=== PATIENT | female | born 1950 | race Caucasian/White ===

== ENCOUNTER 2024-07-07 10:10 | Emergency (ER) | payer MEDICARE, MEDICAID ==
[~2024-07-07] VITALS: Ht 170.2 cm; Wt 67.7 kg
[~2024-07-07 10:10] MED LIST: ASPI-1265 PO; FURO20TA4 PO; MIRT-87 PO; POTA-207 PO
[2024-07-07 10:42] VITALS: TEMP 97
[2024-07-07 11:10] VITALS: BP 112/80; PULSE 88; RESP 18; O2SAT 98
== END 2024-07-07 11:13 ==
LOC: ER 10:10
DX: F10.129 Alcohol abuse with intoxication, unspecified (principal); G89.29 Other chronic pain; Z90.49 Acquired absence of other specified parts of digestive tract; Z98.890 Other specified postprocedural states; Z72.89 Other problems related to lifestyle
CPT/HCPCS: 99283

== ENCOUNTER 2024-07-23 10:34 | Emergency (ER) | payer MEDICARE, MEDICAID ==
[~2024-07-23] VITALS: Ht 170.2 cm; Wt 67.7 kg
[2024-07-23 10:47] VITALS: BP 116/74; PULSE 91; RESP 18; TEMP 97.6; O2SAT 95
== END 2024-07-23 12:18 | disposition home or self-care (01) ==
LOC: ER 10:35
DX: F10.129 Alcohol abuse with intoxication, unspecified (principal); Z90.49 Acquired absence of other specified parts of digestive tract; Z90.89 Acquired absence of other organs; Z79.82 Long term (current) use of aspirin
CPT/HCPCS: 99281

== ENCOUNTER 2024-08-11 14:56 | Emergency (ER) | payer MEDICARE, MEDICAID ==
[~2024-08-11] VITALS: Ht 175.3 cm; Wt 61.4 kg
[2024-08-11 15:24] LABS: BASOPHILS % (AUTO) 0.5 % (0-1); EOSINOPHILS % (AUTO) 0.3 % (0-6); HEMATOCRIT 35.9 % (35.0-45.0); HEMOGLOBIN 11.8 g/dl (12.0-16.0); LYMPHOCYTES # (AUTO) 1.4 X10'3 (1.1-4.8); LYMPHOCYTES % (AUTO) 19.8 % (21-51); MEAN CORPUSCULAR HEMOGLOBIN 33.2 PG (27.0-31.0); MEAN CORPUSCULAR HGB CONC 32.9 g/dL (33.0-36.5); MEAN PLATELET VOLUME 8.8 FL (7.4-10.4); MONOCYTES # (AUTO) 0.3 X10'3 (0-0.9); MONOCYTES % (AUTO) 4.9 % (2-12); NEUTROPHILS # (AUTO) 5.3 X10'3 (1.8-7.7); NEUTROPHILS % (AUTO) 74.5 % (42-75); PLATELET COUNT 223 X10'3 (140-440); RED BLOOD COUNT 3.55 X10'6 (4.20-5.60); RED CELL DISTRIBUTION WIDTH 15.4 % (11.5-14.5); WHITE BLOOD COUNT 7.1 X10'3 (4.5-11.0)
[2024-08-11 15:37] LABS: ALANINE AMINOTRANSFERASE 18 U/L (12-78); ALBUMIN 3.7 G/DL (3.4-5.0); ALBUMIN/GLOBULIN RATIO 0.9 (1.1-1.5); ALKALINE PHOSPHATASE 102 IU/L (46-116); ANION GAP 11 (8-16); ASPARTATE AMINO TRANSFERASE 23 U/L (10-37); BILIRUBIN,TOTAL 0.3 MG/DL (0.1-1.0); BLOOD UREA NITROGEN 23 MG/DL (7-18); BUN/CREATININE RATIO 16.2 (10.0-20.0); CHLORIDE 106 MMOL/L (99-107); CREATININE 1.42 MG/DL (0.40-0.90); GLUCOSE 109 MG/DL (70-104); POTASSIUM 3.8 MMOL/L (3.5-5.1); SODIUM 140 MMOL/L (135-145); TOTAL PROTEIN 7.8 G/DL (6.4-8.2); eCRCL 35 ML/MIN; eGFR 36 ML/MIN
[2024-08-11 15:49] LABS: ETHANOL 337 MG/DL (<10)
[2024-08-11] MEDS: OLANZapine **IM** 10 mg inj. IM ONE ×2 (16:01→17:33)
[2024-08-11 18:54] VITALS: BP 169/86; PULSE 68; RESP 14; TEMP 98.3; O2SAT 98
== END 2024-08-11 18:58 | disposition home or self-care (01) ==
LOC: ER 14:57
DX: F10.129 Alcohol abuse with intoxication, unspecified (principal); Z90.49 Acquired absence of other specified parts of digestive tract; Z90.89 Acquired absence of other organs; Z79.82 Long term (current) use of aspirin; Y90.9 Presence of alcohol in blood, level not specified
CPT/HCPCS: 36415; 80053; 85025; 96372; 99285; G0480; J3490; 80320